=== PATIENT | male | born 1945 | race Caucasian/White ===

== ENCOUNTER 2019-06-11 15:25 | Emergency (ER) | payer MEDICARE, BC ==
[2019-06-11 15:58] VITALS: BP 145/70
--- NOTE | 2019-06-11 16:10 | UC ---
Hand/Wrist HPI - HPI Summary HPI Summary: Pt presents with c/o sudden onset of right wrist pain, swelling, erythema, and "warmth" that began 1 week ago. Pt denies hx of gout, denies drinking alcohol. - History Of Current Complaint Chief Complaint: UCUpperExtremity Stated Complaint: RIGHT WRIST PAIN Time Seen by Provider: 06/11/19 15:48 Hx Obtained From: Patient ?: No Onset/Duration: Sudden Onset, Lasting Days Severity Initially: Mild Severity Currently: Mild Pain Intensity: 3 Character Of Pain: Dull, Aching, Stiffness Aggravating Factor(s): Movement Alleviating Factor(s): Rest Associated Signs And Symptoms: Positive: Swelling, Redness Related History: Dominant Hand Right - Risk Factors Compartment Syndrome Risk Factors: Pain - Allergies/Home Medications Allergies/Adverse Reactions: Allergies Allergy/AdvReac Type Severity Reaction Status Date / Time No Known Allergies Allergy Verified 06/11/19 15:52 PMH/Surg Hx/FS Hx/Imm Hx Previously Healthy: Yes - Surgical History Surgical History: Yes Surgery Procedure, Year, and Place: APPY, HERNIA REPAIR, [place] "SCOPED' - Family History Known Family History: Positive: Cardiac Disease - Social History Occupation: Retired Lives: With Family Alcohol Use: None Substance Use Type: None Smoking Status (MU): Never Smoked Tobacco Have You Smoked in the Last Year: No Review of Systems All Other Systems Reviewed And Are Negative: Yes Constitutional: Positive: Negative Skin: Positive: Other - erythema rigth wrist Eyes: Positive: Negative ENT: Positive: Negative Respiratory: Positive: Negative Cardiovascular: Positive: Negative Gastrointestinal: Positive: Negative Genitourinary: Positive: Negative Motor: Positive: Decreased ROM - right wrist Neurovascular: Positive: Negative Musculoskeletal: Positive: Arthralgia, Decreased ROM, Edema, Myalgia Neurological: Positive: Negative Psychological: Positive: Negative Is Patient Immunocompromised?: No Physical Exam Triage Information Reviewed: Yes Appearance: Pain Distress - with wrist rom Vital Signs: Initial Vital Signs Temp 97.7 F 06/11/19 15:55 Pulse 98 06/11/19 15:55 Resp 15 06/11/19 15:55 BP 145/70 06/11/19 15:55 Pulse Ox 98 06/11/19 15:55 Vital Signs Reviewed: Yes Eye Exam: Normal ENT: Positive: Hearing grossly normal Dental Exam: Normal Neck exam: Normal Neck: Positive: Enlarged Nodes @ - right submaxillary Respiratory Exam: Normal Cardiovascular Exam: Normal Musculoskeletal: Positive: Strength Limited @ - right wrist, ROM Limited @ - right wrist, Edema @ - mild right wrist Neurological Exam: Normal Psychological Exam: Normal Skin Exam: Other - mild erythema right wrist Hand/Wrist Course/Dx - Differential Dx/Diagnosis Differential Diagnosis/HQI/PQRI: Bursitis, Cellulitis, Gout Provider Diagnosis: Gout of right wrist Discharge ED - Sign-Out/Discharge Documenting (check all that apply): Patient Departure All imaging exams completed and their final reports reviewed: No Studies - Discharge Plan Condition: Stable Disposition: HOME Prescriptions: Colchicine* [Colcrys*] 0.6 mg PO DAILY #3 tab Patient Education Materials: Low Purine Diet (ED), Gout (ED) Referrals: Logan Sol MD [Primary Care Provider] - If Needed - Billing Disposition and Condition Condition: STABLE Disposition: Home - Attestation Statements Provider Attestation: I was available for consult. This patient was seen by the LISA. The patient was not presented to, seen by, or examined by me. -Oswaldo
== END 2019-06-11 16:21 | disposition home or self-care (01) ==
LOC: UCCORT 15:25
DX: M10.9 Gout, unspecified (principal)
CPT/HCPCS: 99212; G0463

== ENCOUNTER 2019-09-08 09:33 | Emergency (ER) | payer MEDICARE, BC ==
[2019-09-08 10:18] VITALS: BP 132/70
--- NOTE | 2019-09-08 10:56 | UC ---
Hand/Wrist HPI - HPI Summary HPI Summary: Pt presents with sudden onset of right wrist swelling, pain, and erythema. Pt was seen here on 06/11/19 for similar c/o and diagnosed with gout. Pt was given colchicine and states symptoms resolved. - History Of Current Complaint Chief Complaint: UCUpperExtremity Stated Complaint: RIGHT WRIST Time Seen by Provider: 09/08/19 10:49 Hx Obtained From: Patient ?: No Onset/Duration: Sudden Onset, Lasting Days, Still Present Severity Initially: Moderate Severity Currently: Moderate Pain Intensity: 8 Character Of Pain: Dull, Aching, Stiffness Aggravating Factor(s): Movement Alleviating Factor(s): Nothing Associated Signs And Symptoms: Positive: Swelling, Redness Related History: Dominant Hand Right - Risk Factors Compartment Syndrome Risk Factors: Pain - Allergies/Home Medications Allergies/Adverse Reactions: Allergies Allergy/AdvReac Type Severity Reaction Status Date / Time No Known Allergies Allergy Verified 09/08/19 10:12 Home Medications: Home Medications Aspirin EC TAB* [Ecotrin EC Low Dose 81 MG*] 81 mg PO DAILY 02/23/15 [History Confirmed 09/08/19] Metformin ER (NF) [Glucophage ER 750 MG TAB (NF)] 750 mg PO TID 02/23/15 [ History Confirmed 09/08/19] Multivitamins/Minerals TAB* [Thera M Plus TAB*] 1 tab PO DAILY 02/23/15 [ History Confirmed 09/08/19] Meloxicam [Mobic] 15 mg PO DAILY PRN 06/09/19 [History Confirmed 09/08/19] Pravastatin Sodium 20 mg PO DAILY 06/09/19 [History Confirmed 09/08/19] Sildenafil Citrate 25 mg PO DAILY PRN 06/09/19 [History Confirmed 09/08/19] glipiZIDE [Glipizide ER] 2.5 mg PO DAILY 06/09/19 [History Confirmed 09/08/19] Colchicine* [Colcrys*] 0.6 mg PO DAILY #3 tab 09/08/19 [Rx] PMH/Surg Hx/FS Hx/Imm Hx Previously Healthy: Yes - Surgical History Surgical History: Yes Surgery Procedure, Year, and Place: APPY, HERNIA REPAIR, [place] "SCOPED' - Family History Known Family History: Positive: Cardiac Disease - Social History Occupation: Retired Lives: With Family Alcohol Use: None Substance Use Type: None Smoking Status (MU): Never Smoked Tobacco Have You Smoked in the Last Year: No Review of Systems All Other Systems Reviewed And Are Negative: Yes Constitutional: Positive: Negative Skin: Positive: Other - erythema right wrist Eyes: Positive: Negative ENT: Positive: Negative Respiratory: Positive: Negative Cardiovascular: Positive: Negative Gastrointestinal: Positive: Negative Genitourinary: Positive: Negative Motor: Positive: Decreased ROM - right wrist Neurovascular: Positive: Negative Musculoskeletal: Positive: Arthralgia, Decreased ROM - right wrist, Edema, Myalgia Neurological/Mental Status: Positive: Negative Psychological: Positive: Negative Is Patient Immunocompromised?: No Physical Exam Triage Information Reviewed: Yes Appearance: Pain Distress - with PE of right wrist Vital Signs: Initial Vital Signs Temp 98.2 F 09/08/19 10:07 Pulse 90 09/08/19 10:07 Resp 16 09/08/19 10:07 BP 132/70 09/08/19 10:07 Pulse Ox 99 09/08/19 10:07 Vital Signs Reviewed: Yes Eye Exam: Normal ENT Exam: Normal Dental Exam: Normal Neck: Positive: Enlarged Nodes @ - submandibular, soft, moveable > than 2 cm each Hand/Wrist Course/Dx - Differential Dx/Diagnosis Differential Diagnosis/HQI/PQRI: Gout, Infection Provider Diagnosis: Gout of right wrist, Lymphadenopathy of head and neck Discharge ED - Sign-Out/Discharge Documenting (check all that apply): Patient Departure All imaging exams completed and their final reports reviewed: No Studies - Discharge Plan Condition: Stable Disposition: HOME Prescriptions: Colchicine* [Colcrys*] 0.6 mg PO DAILY #3 tab Patient Education Materials: Low Purine Diet (ED), Gout (ED), Lymphadenopathy ( ED) Referrals: Logan Sol MD [Primary Care Provider] - If Needed - Billing Disposition and Condition Condition: STABLE Disposition: Home
== END 2019-09-08 11:11 | disposition home or self-care (01) ==
LOC: UCCORT 09:33
DX: M10.9 Gout, unspecified (principal); R59.1 Generalized enlarged lymph nodes; Z79.82 Long term (current) use of aspirin
CPT/HCPCS: 99212; G0463